=== PATIENT | male | born 1970 | race African-American/Black ===

== ENCOUNTER 2018-03-20 10:07 | Emergency (ER) | payer OTHER ==
[~2018-03-20] VITALS: Ht 175.3 cm; Wt 84.1 kg
[2018-03-20 10:22] VITALS: BP 128/91
[2018-03-20] MEDS ORDERED: DEXAMETHASONE 10 MG/ML VIAL IM ONE (10:45)
[2018-03-20] MEDS ORDERED: KETOROLAC 60 MG/2 ML VIAL IM ONE (10:45)
[2018-03-20 11:32] VITALS: BP 128/91
== END 2018-03-20 11:32 | disposition home or self-care (01) ==
LOC: MED 10:07
DX: S33.5XXA Sprain of ligaments of lumbar spine, initial encounter (principal); X50.9XXA Other and unspecified overexertion or strenuous movements or postures, initial encounter; Y93.89 Activity, other specified; Y92.89 Other specified places as the place of occurrence of the external cause; Y99.8 Other external cause status
CPT/HCPCS: 96372; 99284; J1100; J1885